=== PATIENT | male | born 1985 | race Caucasian/White ===

== ENCOUNTER 2020-04-14 09:39 | Outpatient (REF) | payer OTHER, SELFPAY | END 2020-04-14 09:40 | disposition home or self-care (01) | LOC: HO.LAB 09:39 | PROVIDERS: Visit Provider Internal Medicine | DX: Z20.822 Contact with and (suspected) exposure to COVID-19 (principal) | CPT/HCPCS: 36415; C9803; U0003; U0005 ==

== ENCOUNTER 2020-10-26 11:35 | Outpatient (REF) | payer OTHER, SELFPAY ==
[2020-10-26 11:51] LABS: COVID-19 Test Positive (Negative)
== END 2020-10-26 11:36 | disposition home or self-care (01) ==
LOC: HO.LAB 11:35
PROVIDERS: Visit Provider Internal Medicine
DX: Z20.822 Contact with and (suspected) exposure to COVID-19 (principal)
CPT/HCPCS: 36415; 87635; C9803